=== PATIENT | female | born 1970 | race African-American/Black ===

== ENCOUNTER 2017-11-14 07:14 | Emergency (ER) | payer OTHER ==
[~2017-11-14] VITALS: Ht 165.1 cm; Wt 60.3 kg
--- NOTE | 2017-11-14 07:51 | ED GENERAL ADULT ---
History of Present Illness General Chief Complaint: Chest Pain Stated Complaint: CP THAT RADIATES TO LEFT ARM. X 1 DAY Source: patient Exam Limitations: no limitations Allergies Coded Allergies: No Known Allergies (11/14/17) Triage Note: PT TO ED C/O SHARP CHEST PAIN/TIGHTNESS SINCE YESTERDAY. ALSO C/O LEFT ARM PAIN/TIGHTNESS. DENIES SOB/DIFF BREATHING. DENIES N/V. AWAY. DENIES SOB/DIFF BREATHING. DENIES N/V. Triage Nurses Notes Reviewed? yes : No Patient currently breastfeeds: No HPI: Patient is a 47-year-old female with no significant past medical history who presented to the emergency department with chest pain 1 day. The patient was in her usual state of health until last night around 9:30 PM when she had a sudden onset of central chest pain, 6/10 in intensity. She heard 2 "pops" from her chest. The pain was pressure-like and radiated down her left shoulder and her left arm. It increase in intensity on taking a deep breath. It went away on its own. This morning the patient also reports that 3/10 dull low back pain. Patient does not report any shortness of breath/cough/nausea/vomiting/ palpitations recent changes in appetite/changes in bowel or bladder habits. Patient reports being under stress since last week as her father with a sudden heart attack. She also reports being in stress for the past 6 months in general. Patient reports a similar episode of chest pain years ago. In the emergency department at that time she was told that her cartilage was inflamed. And she was sent on ibuprofen, which did not help her a lot. (Yonny RICHARD,[facility]) Vital Signs & Intake/Output Vital Signs & Intake/Output Vital Signs Date Time Temp Pulse Resp B/P B/P Pulse O2 O2 Flow FiO2 Mean Ox Delivery Rate 11/14 0910 97.1 76 18 120/74 99 Room Air 11/14 0828 Room Air 11/14 0726 96.0 77 20 127/78 99 Room Air (Vanessa RICHARD,Sony Feldman) Past History Travel History Traveled to [place] past 21 day No Medical History Any Pertinent Medical History? none Surgical History Surgical History: Psychosocial History Where do you live Home Who do you live with Family What is your primary language Lebanese Tobacco Use: Never used ETOH Use: occasional use Illicit Drug Use: denies illicit drug use Family History Family History, If Any: Relation not specified for: FH: heart disease FH: hyperlipidemia Hypertension in father Systemic lupus erythematosus (SLE) in mother Hx Contributory? Yes (Mirella Blancas MD) Review of Systems Review of Systems Constitutional: Reports: no symptoms. EENTM: Reports: no symptoms. Respiratory: Reports: no symptoms. Cardiovascular: Reports: see HPI, chest pain. GI: Reports: no symptoms. Genitourinary: Reports: no symptoms. Musculoskeletal: Reports: no symptoms. Skin: Reports: no symptoms. Neurological/Psychological: Reports: see HPI, anxiety. Hematologic/Endocrine: Reports: no symptoms. Immunologic/Allergic: Reports: no symptoms. All Other Systems: Reviewed and Negative (Mirella Blancas MD) Review of Systems Constitutional: Reports: no symptoms. EENTM: Reports: no symptoms. Respiratory: Reports: no symptoms. Cardiovascular: Reports: see HPI, chest pain. GI: Reports: no symptoms. Genitourinary: Reports: no symptoms. Musculoskeletal: Reports: no symptoms. Skin: Reports: no symptoms. Neurological/Psychological: Reports: see HPI, anxiety. Hematologic/Endocrine: Reports: no symptoms. Immunologic/Allergic: Reports: no symptoms. All Other Systems: Reviewed and Negative (Vanessa RICHARD,Sony Feldman) Physical Exam Physical Exam Comments: General Appearance: Alert, Oriented X3, Cooperative, No Acute Distress Skin: No Breakdown Skin Temp/Moisture Exam: Warm/Dry Sepsis Skin Exam (color): Normal for Ethnicity HEENT: Atraumatic, PERRLA, EOMI, Mucous Membr. moist/pink Neck: Supple, No JVD, No thryomegaly, +2 Carotid Pulse wo Bruit Cardiovascular: Regular Rate, Normal S1, Normal S2, No Murmurs Lungs: CTA, No w/r/r, tenderness parasternally on palpation. Abdomen: Normal Bowel Sounds, Soft, No Tenderness, No Hepatospenomegaly Neurological: Normal Speech, Strength at 5/5 X4 Ext, Normal Tone, Sensation Intact, Cranial Nerves 3-12 NL, Reflexes 2+ Extremities: Left arm and left shoulder tenderness on palpation. No Clubbing, No Cyanosis, No edema,Normal Pulses Vascular: Pulses Symmetrical Core Measures ACS in differential dx? Yes CVA/TIA Diagnosis: No Sepsis Present: No Sepsis Focused Exam Completed? Yes (Mirella Blancas MD) Physical Exam General Appearance: well developed/nourished (Sony Mendez MD) Progress Differential Diagnoses I considered the following diagnoses in my evaluation of the patient: [ Musculoskeletal pain/costochondritis, acute coronary syndrome, pulmonary embolism, GERD] Initial ED EKG: normal axis, NSR (Mirella Blancas MD) Differential Diagnoses I considered the following diagnoses in my evaluation of the patient: Plan of Care: Orders Procedure Date/time Status TROPONIN LEVEL 11/14 801 Complete HUMAN BETA HCG SCREEN 11/14 801 Complete D-DIMER 11/14 801 Complete COMPREHENSIVE METABOLIC PANEL 11/14 801 Complete CBC WITHOUT DIFFERENTIAL 11/14 801 Complete EKG 11/15 715 Active Laboratory Tests 11/14/17814: Anion Gap 5, Estimated GFR > 60, BUN/Creatinine Ratio 11.4, Glucose 94, Calcium 9.2, Total Bilirubin 0.8, AST 16, ALT 28, Alkaline Phosphatase 43, Troponin I < 0.01, Total Protein 6.7, Albumin 3.9, Globulin 2.8, Albumin/Globulin Ratio 1.4, Total Beta HCG NEGATIVE, D-Dimer High Sensitivty < 200, CBC w Diff NO MAN DIFF REQ, RBC 4.71, MCV 78.5 L, MCH 26.9 L, MCHC 34.3, RDW 14.4, MPV 8.0, Gran % 47.5, Lymphocytes % 38.0, Monocytes % 5.5, Eosinophils % 8.3 H, Basophils % 0.7 , Absolute Granulocytes 2.6, Absolute Lymphocytes 2.1, Absolute Monocytes 0.3, Absolute Eosinophils 0.4, Absolute Basophils 0 Rhythm Strip: normal sinus rhythm (Sony Mendez MD) Departure Departure Condition: Stable Departure Forms: Customer Survey General Discharge Information (Mirella Blancas MD) Departure Disposition: HOME OR SELF CARE Clinical Impression Primary Impression: Chest pain, unspecified Referrals: Gabriel RICHARD,Claudio Wallis MD,Alea Ortega (PCP/Family) Additional Instructions: FOLLOW UP WITH CARDIOLOGY RETURN IF SYMPTOMS WORSENOR FOR ANY CONCERNS Resident Co-Sign Statement Statement: ED Attending supervision documentation- [X] I saw and evaluated the patient. I have also reviewed all the pertinent lab results and diagnostic results. I agree with the findings and the plan of care as documented in the Resident's documentation. [X] I have reviewed the ED Record and agree with the Resident's documentation. [] Additions or exceptions (if any) to the Resident's note and plan are summarized below: [] (Vanessa RICHARD,Sony Feldman) Critical Care Note Critical Care Note Critical Care Time: non-applicable (Mirella Blancas MD) ED Attending Observation Initial Observation Note: I have seen and personally examined ELSA PAZ on 11/14/17 at 0817. I agree with the current emergency department documentation. The disposition (admission or discharge) is uncertain at this time, she needs a period of observation for the following reason(s): [Chest pain] The ED Nurse caring for this patient has been personally informed as to what the patient is being observed for. (Mirella Blancas MD)
[2017-11-14 08:28] LABS: ABSOLUTE BASOPHIL COUNT 0 /CUMM (0.0-0.2); ABSOLUTE EOSINOPHIL COUNT 0.4 /CUMM (0.0-0.7); ABSOLUTE GRANULOCYTE CT 2.6 /CUMM (1.4-6.5); ABSOLUTE LYMPH COUNT 2.1 /CUMM (1.2-3.4); ABSOLUTE MONOCYTE COUNT 0.3 /CUMM (0.10-0.60); BASOPHIL % 0.7 % (0.0-2.0); EOSINOPHIL % 8.3 % (0-5); GRANULOCYTE % 47.5 % (42.2-75.2); MEAN CORPUSCULAR HGB 26.9 PG (27.0-31.0); MEAN CORPUSCULAR HGB CONC 34.3 G/DL (33.0-37.0); MEAN CORPUSCULAR VOLUME 78.5 FL (81.0-99.0); PLATELET COUNT 305 /CUMM (130-400); RBC DISTRIBUTION WIDTH 14.4 % (11.5-14.5); RED BLOOD CELL CT 4.71 /CUMM (4.20-5.40); WHITE BLOOD CELL COUNT 5.4 /CUMM (4.8-10.8)
[2017-11-14 09:10] VITALS: BP 120/74
== END 2017-11-14 09:11 ==
LOC: ERH 07:14
PROVIDERS: Internal Medicine
DX: R07.89 Other chest pain (principal)
CPT/HCPCS: 93005; 93010; 96372; J1885